=== PATIENT | female | born 1995 | race Caucasian/White ===

== ENCOUNTER 2017-11-23 04:13 | Inpatient (IN) | payer BC ==
[~2017-11-23 04:13] MED LIST: Lactated Ringers 1,000 ML IV SCH; Ondansetron 4 MG/2 ML SDV IV PRN; Oxytocin/Normal Saline 30 UNIT/500 ML BAG IV SCH
[2017-11-23] MEDS ORDERED: Penicillin G Potassium 5 MILLUNITS in Sodium Chloride 0.9% 100 ML IV ONE (05:09)
[2017-11-23] MEDS: Lactated Ringers 1,000 ML IV SCH ×2 (05:54→06:49)
[2017-11-23] MEDS ORDERED: Ondansetron 4 MG/2 ML SDV IV PRN (05:58)
[2017-11-23] MEDS ORDERED: fentaNYL 100 MCG/2 ML SDV ONE (06:20)
[2017-11-23] MEDS ORDERED: EPINEPHrine 1 MG/ML SDV ONE (06:20)
[2017-11-23] MEDS ORDERED: Bupivacaine 0.75%/D5W 2 ML Amp ONE (06:20)
--- NOTE | 2017-11-23 07:06 | PCM.SN ---
- Free Text/Narrative Note: Intrathecal. Sitting position, sterile prep and drape. 1 % lidocaine w bicarb for skinwheal to L3 L4 interspace, introducer, 24 ga pencan x 1. Pos CSF, neg heme, neg parasthesia. 1:1000 epi wash pf, 20 mcg pf sufenta, 30 mcg pf fentanyl , 0.4 ml pf ns and 6 mg of 0.75% pf bupivacaine injected after CSf aspiration. Pt to L lateral position. Procedure time 0607to 0649
[2017-11-23] MEDS ORDERED: Penicillin G Potassium 5,000,000 Unit Vial ONE (09:44)
[2017-11-23] MEDS ORDERED: Penicillin G Potassium 2.5 MILLUNITS in Sodium Chloride 0.9% 100 ML IV SCH (09:45)
[2017-11-23] MEDS ORDERED: Lidocaine 1% 30 ML SDV ONE (11:23)
[2017-11-23] MEDS ORDERED: Acetaminophen 325 MG Tab PO PRN (11:30)
[2017-11-23] MEDS ORDERED: Simethicone 80 MG Tab.Chew PO PRN (11:30)
[2017-11-23] MEDS ORDERED: Lidocaine 1% 30 ML SDV INJECT ONE (11:38)
[2017-11-23] MEDS ORDERED: Carboprost Tromethamine 250 MCG/1 ML Amp IM PRN (14:45)
[2017-11-23] MEDS ORDERED: Benzocaine/Menthol 20%-0.5% Spray 56 GM Canister TOP PRN (14:45)
[2017-11-23] MEDS ORDERED: Zolpidem 5 MG Tab PO PRN (14:45)
[2017-11-23] MEDS ORDERED: Sodium Chloride 0.9% 10 ML Syringe FLUSH PRN (14:45)
[2017-11-23] MEDS: Ibuprofen 800 MG Tab PO PRN (17:21)
[2017-11-23] MEDS: Acetaminophen 325 MG Tab PO PRN (22:33)
[2017-11-23] MEDS: Docusate Sodium 100 MG Cap PO PRN (22:37)
--- NOTE | 2017-11-24 06:34 | DEL ---
DATE: 11/23/2017 Louis has proceeded on during the 2nd stage of labor. She does have good pushing effort. She does have the vertex for a number of minutes and does have a very tight introitus, and because of the high likelihood of sustaining a severe perineal laceration, when she was not able to push the baby out spontaneously and towards the end of her labor we did a small to average sized midline episiotomy. She did proceed on very nicely to now spontaneously deliver a viable baby boy, who weighed 8 pounds 5 ounces and had scores of 9 and 9. The placenta was spontaneous and intact. Close inspection of the vaginal vault reveals no major severe lacerations; however, she does have a small right vaginal sulcus laceration, which was repaired initially with 3-0 Vicryl. Now, the remainder of the midline episiotomy is repaired in the usual fashion. Estimated blood loss from the procedure was approximately 300 mL. The patient and baby have remained very stable in the area. Please refer to the electronic health record for further obstetrical details. Sponge and instrument count was also reported and verified as correct. [facility] /[id number]
[2017-11-24] MEDS: Ibuprofen 800 MG Tab PO PRN ×2 (06:42→18:18)
[2017-11-24] MEDS: Prenatal Multivitamin with Calcium/Folic Acid/Iron Tab PO SCH (09:07)
[2017-11-24] MEDS: Docusate Sodium 100 MG Cap PO PRN ×2 (09:08→20:54)
--- NOTE | 2017-11-24 10:37 | PN ---
DATE: 11/24/2017 SUBJECTIVE: Louis is doing well on rounds today. She did deliver vaginally yesterday. Please see our delivery note. OBJECTIVE: Her vital signs are stable today including afebrile. Her lochia flow is within normal limits, and her fundus is firm. She is . Her extremities are negative. ASSESSMENT: Stable course because she is a primigravida and also was group B streptococcus positive, but did receive 2 doses of antibiotics. We will permit discharge tomorrow on Saturday morning. PLAN: See above. Progressive ambulation, adequate hydration, and healthy nutrition were reviewed with her. She will go home tomorrow. [facility] /[id number]
[2017-11-24] MEDS: Acetaminophen 325 MG Tab PO PRN (20:52)
[2017-11-25] MEDS: Ibuprofen 800 MG Tab PO PRN (07:50)
[2017-11-25] MEDS: Prenatal Multivitamin with Calcium/Folic Acid/Iron Tab PO SCH ×2 (07:50→08:53)
[2017-11-25] MEDS: Docusate Sodium 100 MG Cap PO PRN (07:53)
[2017-11-25] MEDS ORDERED: EPINEPHrine 1 MG/ML SDV IV ONE (12:29)
[2017-11-25] MEDS ORDERED: fentaNYL 100 MCG/2 ML SDV ITHECAL ONE (12:29)
[2017-11-25] MEDS ORDERED: Bupivacaine 0.75%/D5W 2 ML Amp INJECT ONE (12:29)
--- NOTE | 2017-11-25 13:16 | DISCH ---
HISTORY OF PRESENT ILLNESS: This patient is a 22-year-old, 1, now para 1 patient, who is followed by Dr. Nelson. The patient was scheduled for possible induction this coming Saturday if she had not delivered. However, the patient did enter the hospital in active labor on 11/23/2017. She was at 39 weeks 1-day gestation with an DAVID of 11/29/2017. She also was known to be GBS positive. Please see my dictated H and P, and please see the dictated delivery note. The patient is immune to rubella. Otherwise, her course has been quite uncomplicated. The patient was given IV penicillin G and did receive approximately 2 doses intrapartum before she delivered. She did proceed on to have a spontaneous vaginal delivery and did have a viable male who weighed 8 pounds 5 ounces and had scores of 9 and 9. The delivery occurred on 11/23/2017. Because of a very tight vaginal introitus and in an effort to avoid severe perineal laceration in this case, we did elect to do a [id number] midline episiotomy, and this was discussed with she and her beforehand, and we did have their permission. She did have the repair of her midline episiotomy and small right vaginal sulcus laceration. She has continued to do well in the period. We do note that she does complain of some fissures and soreness on her breast areas, so therefore, we are obtaining the specialized nipple cream that will be given to her consisting of betamethasone, Eucerin, and miconazole. The patient will also use a breast pump. PHYSICAL EXAMINATION: The patient's vital signs have remained stable. Her lochia flow is within normal limits, and her fundus is firm. Her extremities are negative. LABORATORY DATA: Discharge hemoglobin is 10.5. DISCHARGE INSTRUCTIONS: Other discharge instructions consisted of instructing her to call us if any excess fever, excess pain, or excess bleeding. She will contact us at once if any questions or problems or unusual symptoms. She also will do progressive ambulation at home. She will avoid intercourse for approximately 6 weeks. She also will do sitz baths at home p.r.n. DISCHARGE MEDICATIONS: 1. Ibuprofen or Tylenol p.r.n. 2. Benzocaine spray p.r.n. She also will have breast pump and special compounded nipple ointment from our clinic pharmacy. DIET: Regular. CONDITION: Good on discharge. OPERATIONS AND PROCEDURES: 1. Spontaneous vaginal delivery of a viable male who weighs 8 pounds 5 ounces and has scores of 9 and 9. 2. Repair of midline episiotomy and small right vaginal sulcus laceration. FINAL DIAGNOSES: 1. 1, now para 1 at 39 weeks 1-day gestation, delivered. 2. Group B streptococcus positive. [facility] /[id number]
--- NOTE | 2017-11-26 07:51 | HP ---
LOCATION: [facility]. HISTORY OF PRESENT ILLNESS: This patient is a 22-year-old 1 patient, who is followed by Dr. Nelson. She does enter the hospital early this morning on 11/23/2017 in labor and does give a history of having had clear amniotic fluid coming out by spontaneous rupture of membranes at about 3:00 a.m. today on 11/23/2017. The patient is also known to be GBS positive. She also is immune to rubella. She denies any other significant complications that she is aware of. PAST MEDICAL HISTORY: Denies any knowledge of heart, lung, liver, or kidney disease. ALLERGIES: None known. PREVIOUS SURGICAL HISTORY: None. MEDICATIONS AT PRESENT: 1. vitamins. 2. Occasionally, she did take iron during the . FAMILY HISTORY: Noncontributory. SOCIAL HISTORY: The patient is here with her today, and the patient is a nonsmoker and does not use alcohol or any street drugs. Her mother is Tessie Siddiqui from the [facility], and I have personally delivered 2 of Louis's brothers previously. PHYSICAL EXAMINATION: Vital Signs: Blood pressure 114/68, pulse 72, and respirations 17. HEENT: The sclerae are nonicteric. Lungs: Clear to A. Heart: Regular rhythm without murmur. Abdomen and Pelvis: Gravid with heart tones category 1, and the baseline is 144. Vertex is the presenting part. There is negative CVA tenderness bilaterally. The patient was thought by the nurses to be close to 4 to 5 cm dilated when she came in, and when I have seen the patient a bit later, she was completely dilated and starting to push. The vertex was at +1 station and 100% effaced for the cervix when I saw her. Clinical pelvimetry appears to be adequate. Vaginal introitus perhaps slightly tight. Extremities: Negative. Neurologic: Grossly intact. IMPRESSION: The patient has an estimated date of delivery of 11/29 and is currently at 39 weeks 1 day gestation with spontaneous rupture of membranes. The patient is group B Streptococcus positive, and she is being given penicillin G prophylaxis. Heart tones are category 1. We do anticipate spontaneous vaginal delivery. We have thoroughly discussed with the patient and her what we do anticipate, and all of their questions have been answered. [facility] /[id number]
== END 2017-11-25 12:30 | disposition home or self-care (01) | DRG 560 ==
LOC: DL.OBCHECK 04:13 → DL.OB 05:05 → OBSVTOIN 11:38
PROVIDERS: ADMIT Obstetrics & Gynecology; ATTEND Obstetrics & Gynecology
PROC: 10E0XZZ Delivery of Products of Conception, External Approach (ICD-10-PCS; principal; 2017-11-23)
PROC: 0W8NXZZ Division of Female Perineum, External Approach (ICD-10-PCS; 2017-11-23)
PROC: 0HQ9XZZ Repair Perineum Skin, External Approach (ICD-10-PCS; 2017-11-23)
PROC: 00HU33Z Insertion of Infusion Device into Spinal Canal, Percutaneous Approach (ICD-10-PCS; 2017-11-23)
DX: O42.02 Full-term premature rupture of membranes, onset of labor within 24 hours of rupture (principal); O70.0 First degree perineal laceration during delivery; O99.824 Streptococcus B carrier state complicating childbirth; Z3A.39 39 weeks gestation of pregnancy; Z37.0 Single live birth
CPT/HCPCS: 36415; 51701; 51703; 59300; 59409; 85027; A9270-GY; J0171; J2540; J2590; J3010; J7050; J7120

== ENCOUNTER 2020-03-21 23:38 | Inpatient (IN) | payer OTHER ==
[2020-03-21] MEDS: Lactated Ringers 1,000 ML IV SCH (23:50)
[2020-03-22] MEDS ORDERED: Methylergonovine 0.2 MG/1 ML Amp IM PRN (00:05)
[2020-03-22] MEDS ORDERED: Lactated Ringers 500 ML IV SCH (00:05)
[2020-03-22] MEDS ORDERED: ePHEDrine 50 MG/ML SDV IVPUSH PRN (00:05)
[2020-03-22] MEDS ORDERED: Naloxone 2 MG/2 ML Syringe IVPUSH PRN (00:05)
[2020-03-22] MEDS ORDERED: Lidocaine 1% 30 ML SDV INJECT PRN (00:05)
[2020-03-22] MEDS ORDERED: Oxytocin/Normal Saline 30 UNIT/500 ML BAG IV SCH (00:05)
[2020-03-22] MEDS ORDERED: Ondansetron 4 MG/2 ML SDV IVPUSH PRN (00:05)
[2020-03-22] MEDS ORDERED: Misoprostol 400 MCG (4 X 100 MCG TAB) RECTAL PRN (00:05)
[2020-03-22] MEDS ORDERED: Tranexamic Acid 1,000 MG in Sodium Chloride 0.9% 100 ML IV PRN (00:05)
[2020-03-22] MEDS ORDERED: Carboprost Tromethamine 250 MCG/1 ML Amp IM PRN (00:05)
[2020-03-22] MEDS ORDERED: Sodium Chloride 0.9% 10 ML Syringe FLUSH PRN (00:05)
[2020-03-22] MEDS ORDERED: Lactated Ringers 1,000 ML IV ONE (00:05)
[2020-03-22] MEDS: Lactated Ringers 1,000 ML IV SCH ×2 (00:13→02:11)
[2020-03-22] MEDS ORDERED: Ondansetron 4 MG/2 ML SDV ONE (00:15)
[2020-03-22] MEDS ORDERED: EPINEPHrine 1 MG/1 ML Amp ONE (00:25)
[2020-03-22] MEDS ORDERED: fentaNYL 100 MCG/2 ML SDV ONE (00:25)
[2020-03-22] MEDS ORDERED: Sodium Bicarbonate 4.2% 2.5 MEQ/5 ML SDV ONE (00:26)
--- NOTE | 2020-03-22 00:50 | PCM.SN.2 ---
- Free Text/Narrative Note: Intrathecal. Sitting position, sterile prep and drape. 1% lidocaine w bicarb for skinwheal to L2 L3 interspace, introducer, 24 ga pencan x 1. Pos CSF neg heme, neg parasthesia. 0.1 ml pf 1:1000 epi, 20 mcg pf sufenta, 30 mcg pf fentanyl, 0.4 ml pf NS and 6 mg of 0.75% PF marcaine injected after CSF aspiration. Pt to L lateral position. Procedure time 0025 to 0055
[2020-03-22] MEDS ORDERED: Simethicone 80 MG Tab.Chew PO PRN (05:20)
[2020-03-22] MEDS ORDERED: Zolpidem 5 MG Tab PO PRN (05:20)
[2020-03-22] MEDS ORDERED: Benzocaine/Menthol 20%-0.5% Spray 56 GM Canister TOP PRN (05:20)
--- NOTE | 2020-03-22 05:36 | PCM.LDHP ---
L&D History of Present Illness - General Date of Service: 03/22/20 ( H&P) Admit Problem/Dx: Patient Status Order with Admit Dx/Problem 03/22/20 00:05 Patient Status [ADT] Routine Admission Diagnosis/Problem Admission Diagnosis/Problem Labor established Source of Information: Patient, Family, Provider, RN, RN Notes Reviewed, Significant Other, Other ( record from Alt/EPIC notes--see for details) History Limitations: Reports: No Limitations - History of Present Illness Introduction:: Delightful 25yo WF @ 39w4d scheduled for induction later this morning who presented in active labor after having membranes stripped in the clinic yesterday at her [facility] with me. no LOF or bleeding. CXNs getting stronger and closer together since then. no pre-E sx. see notes for details. GBS negative hx COVID during --ASA until 36 weeks Rubella immune Location, : Reports: Uterus Severity: Moderate Associated Symptoms: Reports: vaginal discharge - Related Data Allergies/Adverse Reactions: Allergies Allergy/AdvReac Type Severity Reaction Status Date / Time No Known Allergies Allergy Verified 11/23/17 04:17 Home Medications: Home Meds Ferrous Sulfate 325 mg PO DAILY 11/23/17 [History] Vit Calc,Iron,Folic [ Vitamins] 1 each PO DAILY 11/23/17 [History] Past Medical History - Past Health History Medical/Surgical History: Denies Medical/Surgical History HEENT History: Reports: None Cardiovascular History: Reports: None Respiratory History: Reports: None Gastrointestinal History: Reports: None Genitourinary History: Reports: None INSTALLMENT AGENT History: Reports: : 2 Para: 1 LMP (Approximate): Other OB/BYN History: prior vaginal delivery--Dr. Jewell, needed episiotomy. elevated one hour sugar screen, 3hour normal Musculoskeletal History: Reports: None Neurological History: Reports: None Psychiatric History: Reports: Anxiety, Depression Endocrine/Metabolic History: Reports: None, Other (See Below) Other Endocrine/Metabolic History: elevated one hour sugar screen, 3 hour normal Hematologic History: Reports: Anemia Oncologic (Cancer) History: Reports: None Dermatologic History: Reports: None - Infectious Disease History Infectious Disease History: Reports: Other (See Below) Other Infectious Disease History: Hx of COVID late Dec - Past Surgical History Head Surgeries/Procedures: Reports: None Respiratory Surgical History: Reports: None Female Surgical History: Reports: None Endocrine Surgical History: Reports: None Musculoskeletal Surgical History: Reports: None Social & Family History - Family History Family Medical History: No Pertinent Family History - Tobacco Use Tobacco Use Status *Q: Never Tobacco User Second Hand Smoke Exposure: No - Caffeine Use Caffeine Use: Reports: Coffee Caffeine Use Comment: 1-2 cups per day - Recreational Drug Use Recreational Drug Use: No - Living Situation & Occupation Living situation: Reports: , with Family Occupation: Employed Social History Comment: Lives with Erick and their son Elena. Expecting another boy. he is magneto electrician. she has [employer] business. mom--Sabra Siddiqui, brother Paramjit Siddiqui, JOI Manzo. H&P Review of Systems - Review of Systems: Review Of Systems: Comprehensive ROS is negative, except as noted in HPI. L&D Exam - Exam Exam: See Below - Vital Signs Vital Signs: Last Vital Signs Temp 98.2 F 03/22/20 02:15 Pulse 63 03/22/20 03:15 Resp 16 03/22/20 03:15 BP 106/55 L 03/22/20 03:15 Pulse Ox 98 03/22/20 03:15 Weight: 214 lb - OB Specific Contraction Duration (sec): 70-80 Contraction Frequency (min): 2-3 Contraction Intensity: Moderate Movement: Active Heart Tones: Present Heart Tones per Min: 120 Heart Rate (FHR) Variability: Moderate (6-25 bmp) Presentation: Right Occiput Anterior (JOHN) Estimated Weight: 8+lbs - Garrett Score Garrett Score Cervix Position: Posterior Garrett Score Consistency: Soft Garrett Score Effacement: >80% Garrett Score Dilation: > 5 cm Garrett Score 's Station: -1 ,0 Garrett Score Total: 10 - Exam General: Alert, Oriented HEENT: Conjunctiva Clear, EOMI, Hearing Intact, Nares Patent, Pupils Equal, Pupils Reactive Neck: Supple Lungs: Clear to Auscultation, Normal Respiratory Effort Cardiovascular: Regular Rate, Regular Rhythm GI/Abdominal Exam: Normal Bowel Sounds Rectal Exam: Deferred Genitourinary: Normal external exam, Cervical dilitation, Enlarged uterus Back Exam: Normal Inspection Extremities: Normal Inspection Skin: Warm, Dry, Intact Neurological: Normal Speech, Normal Tone, Sensation Intact Psychiatric: Alert, Normal Affect, Normal Mood - Patient Data Lab Results Last 24 hrs: Laboratory Results - last 24 hr 03/21/20 Range/Units 23:50 WBC 12.6 H (5.0-10.0) 10^3/uL RBC 4.44 (4.2-5.4) 10^6/uL Hgb 12.6 D (12.0-16.0) g/dL Hct 36.5 L (37.0-47.0) % MCV 82.2 (80-100) fL MCH 28.4 (27.0-34.0) pg MCHC 34.5 (33.0-35.0) g/dL Plt Count 255 (150-450) 10^3/uL Result Diagrams: 03/21/20 23:50 - Problem List (1) Spontaneous onset of labor SNOMED Code(s): 82719703 ICD Code: OFW0932 - Status: Acute Current Visit: Yes (2) Term SNOMED Code(s): 52378813 ICD Code: Z34.90 - ENCNTR FOR SUPRVSN OF NORMAL , UNSP, UNSP TRIMESTER Status: Acute Current Visit: Yes (3) Term delivered SNOMED Code(s): 69414572, 636866522 ICD Code: O80 - ENCOUNTER FOR FULL-TERM UNCOMPLICATED DELIVERY Status: Acute Current Visit: Yes (4) Vacuum extraction, delivered, current hospitalization SNOMED Code(s): 313730261 ICD Code: O66.5 - ATTEMPTED APPLICATION OF VACUUM EXTRACTOR AND FORCEPS Status: Acute Current Visit: Yes (5) Vaginal delivery SNOMED Code(s): 076866064 ICD Code: O80 - ENCOUNTER FOR FULL-TERM UNCOMPLICATED DELIVERY Status: Acute Current Visit: Yes (6) Mother currently breast-feeding SNOMED Code(s): 469171258 ICD Code: Z39.1 - ENCOUNTER FOR CARE AND EXAMINATION OF LACTATING MOTHER Status: Acute Current Visit: Yes (7) Rubella immune SNOMED Code(s): 528752311 ICD Code: Z78.9 - OTHER SPECIFIED HEALTH STATUS Status: Acute Current Visit: Yes (8) Blood type A+ SNOMED Code(s): 772538794 ICD Code: Z67.10 - TYPE A BLOOD, RH POSITIVE Status: Acute Current Visit: Yes (9) Group B Streptococcus not isolated SNOMED Code(s): 911607035 ICD Code: IAW0261 - Status: Acute Current Visit: Yes (10) History of 2019 novel coronavirus disease (COVID-19) SNOMED Code(s): 062303226768961533 ICD Code: Z86.19 - PERSONAL HISTORY OF OTHER INFECTIOUS AND PARASITIC DISEASES Status: Acute Current Visit: Yes Problem List Initiated/Reviewed/Updated: Yes Orders Last 24hrs: Active Orders 24 hr Category Date Time Status Patient Status [ADT] Routine ADT 03/22/20 00:05 Active Communication Order [RC] ASDIRECTED Care 03/22/20 00:05 Active Communication Order [RC] PER UNIT ROUTINE Care 03/22/20 00:05 Active Communication Order [RC] PER UNIT ROUTINE Care 03/22/20 00:05 Active Communication Order [RC] PER UNIT ROUTINE Care 03/22/20 00:05 Active Heart Tones [RC] PER UNIT ROUTINE Care 03/22/20 00:05 Active Notify Provider Vital Signs OB [RC] ASDIRECTED Care 03/22/20 00:05 Active Notify Provider [RC] PRN Care 03/22/20 00:05 Active Pump Management, Intrathecal [RC] ASDIRECTED Care 03/22/20 00:05 Active Up ad Ashley [RC] ASDIRECTED Care 03/22/20 00:05 Active Vital Signs [RC] PER UNIT ROUTINE Care 03/22/20 00:05 Active Vital Signs [RC] PFP Care 03/22/20 05:22 Active Consult to Hebrew Teacher [CONS] Routine Cons 03/22/20 05:20 Active Regular Diet [DIET] Diet 03/22/20 Breakfast Active Acetaminophen [TylenoL] Med 03/22/20 00:05 Active 650 mg PO Q4H PRN Benzocaine/Menthol [Dermoplast Pain Relief [place]] Med 03/22/20 05:20 Active See Dose Instructions TOP Q4H PRN Carboprost Tromethamine [Hemabate DS] Med 03/22/20 00:05 Active 250 mcg IM ASDIRECTED PRN Docusate Sodium [Colace] Med 03/22/20 05:20 Active 100 mg PO BID PRN Ibuprofen [Motrin] Med 03/22/20 05:20 Active 800 mg PO Q8H PRN Lactated Ringers [Ringers, Lactated] 1,000 ml Med 03/22/20 00:05 Active IV ASDIRECTED Lactated Ringers [Ringers, Lactated] 500 ml Med 03/22/20 00:05 Active IV SEECOMMENT Lidocaine 1% [Xylocaine-MPF 1%] Med 03/22/20 00:05 Active 30 ml INJECT ASDIRECTED PRN Methylergonovine [Methergine] Med 03/22/20 00:05 Active 0.2 mg IM ASDIRECTED PRN Naloxone [Narcan] Med 03/22/20 00:05 Active 0.1 mg IVPUSH SEECOMMENT PRN Ondansetron [Zofran] Med 03/22/20 00:05 Active 4 mg IVPUSH Q4H PRN Oxytocin/Normal Saline [Pitocin in NS 30 UNIT/500 ML] Med 03/22/20 00:05 Active 30 unit in 500 ml IV TITRATE Vit with Ca/FA/Iron [ Plus Iron] Med 03/22/20 09:00 Active 1 each PO DAILY Simethicone Med 03/22/20 05:20 Active 80 mg PO Q4H PRN Sodium Chloride 0.9% [Saline Flush] Med 03/22/20 00:05 Active 10 ml FLUSH ASDIRECTED PRN Tranexamic Acid [Cyklokapron] 1,000 mg Med 03/22/20 00:05 Active Sodium Chloride 0.9% [Normal Saline] 100 ml IV ONETIME Zolpidem [Ambien] Med 03/22/20 05:20 Active 5 mg PO BEDTIME PRN ePHEDrine [ePHEDrine sulfate] Med 03/22/20 00:05 Active 5 mg IVPUSH Q5M PRN miSOPROStoL [Cytotec] Med 03/22/20 00:05 Active 800 mcg RECTAL ASDIRECTED PRN Assess Lochia [WOMSER] Per Unit Routine Oth 03/22/20 05:22 Ordered Assess Uterine Involution [WOMSER] Per Unit Routine Oth 03/22/20 05:22 Ordered Blood Pressure [OM.PC] Routine Oth 03/22/20 00:05 Ordered Breast Pump [WOMSER] Per Unit Routine Oth 03/22/20 05:22 Ordered Ice Therapy [OM.PC] Per Unit Routine Oth 03/22/20 05:22 Ordered Perineal Care [OM.PC] Per Unit Routine Oth 03/22/20 05:22 Ordered Saline Lock Insert [OM.PC] Routine Oth 03/22/20 00:05 Ordered Sitz Bath [OM.PC] Per Unit Routine Oth 03/22/20 05:22 Ordered Resuscitation Status Routine Resus Stat 03/22/20 01:39 Ordered Medication Orders Acetaminophen (Tylenol) 650 mg PO Q4H PRN PRN Reason: Pain (Mild 1-3) and fever Benzocaine/Menthol (Dermoplast Pain Relief Sterling) 0 gm TOP Q4H PRN PRN Reason: Perineal comfort measures Carboprost Tromethamine (Hemabate Ds) 250 mcg IM ASDIRECTED PRN PRN Reason: HEMORRHAGE Docusate Sodium (Colace) 100 mg PO BID PRN PRN Reason: Constipation Ephedrine Sulfate (Ephedrine Sulfate) 5 mg IVPUSH Q5M PRN PRN Reason: See Label Comments Lactated Ringer's (Ringers, Lactated) 1,000 mls @ 125 mls/hr IV ASDIRECTED [facility] Last Admin: 03/22/20 02:11 Dose: 125 mls/hr Documented by: Infusion: 03/22/20 02:11 Dose: 125 mls/hr Documented by: Admin: 03/22/20 00:13 Dose: 125 mls/hr Documented by: Infusion: 03/22/20 00:13 Dose: 125 mls/hr Documented by: Admin: 03/21/20 23:50 Dose: 125 mls/hr Documented by: MATIAS Tranexamic Acid 1,000 mg/ (Sodium Chloride) 110 mls @ 660 mls/hr IV ONETIME PRN PRN Reason: Bleeding Oxytocin/Sodium Chloride (Pitocin In Ns 30 Unit/500 Ml) 30 unit in 500 mls @ 2 mls/hr IV TITRATE LATOYA; Protocol Last Titration: 03/22/20 03:27 Dose: 6 munits/min, 6 mls/hr Documented by: Titration: 03/22/20 02:53 Dose: 4 munits/min, 4 mls/hr Documented by: Admin: 03/22/20 02:23 Dose: 2 munits/min, 2 mls/hr Documented by: MATIAS Lactated Ringer's (Ringers, Lactated) 500 mls @ 999 mls/hr IV SEECOMMENT LATOYA Ibuprofen (Motrin) 800 mg PO Q8H PRN PRN Reason: Mild Pain or Fever Lidocaine HCl (Xylocaine-Mpf 1%) 30 ml INJECT ASDIRECTED PRN PRN Reason: Perineal Repair Methylergonovine Maleate (Methergine) 0.2 mg IM ASDIRECTED PRN PRN Reason: Hemorrhage Misoprostol (Cytotec) 800 mcg RECTAL ASDIRECTED PRN PRN Reason: Hemorrhage Naloxone HCl (Narcan) 0.1 mg IVPUSH SEECOMMENT PRN PRN Reason: Respiratory Depression Ondansetron HCl (Zofran) 4 mg IVPUSH Q4H PRN PRN Reason: Nausea/Vomiting Last Admin: 03/22/20 00:23 Dose: 4 mg Documented by: MATIAS Prenat Multivit/Cottle/Iron/Folic Ac ( Plus Iron) 1 each PO DAILY LATOYA Simethicone (Simethicone) 80 mg PO Q4H PRN PRN Reason: Gas Sodium Chloride (Saline Flush) 10 ml FLUSH ASDIRECTED PRN PRN Reason: Keep Vein Open Zolpidem Tartrate (Ambien) 5 mg PO BEDTIME PRN PRN Reason: Insomnia Assessment/Plan Comment:: Assessment: 25yo WF @ 39w4d with onset labor advanced cervical dilation A+ blood type rubella immune GBS negative Hx COVID infection--ECASA to 36 weeks NST reactive Plan: admit to L&D routine admit orders pitocin augmentation if indicated AROM if needed plan for expected vaginal delivery. All questions answered. [email or web address]
--- NOTE | 2020-03-22 05:57 | PCM.DEL ---
L & D Note - General Info Date of Service: 03/22/20 (time of : 0457) Mother's Due Date: 03/25/20 (39w4d) - Delivery Note Labor: Spontaneous Delivery Outcome: Livebirth Infant Delivery Method: Spontaneous Vaginal Delivery-Single Delivery Mode: Vacuum Extraction Presentation: Left Occiput Anterior (MYNOR) Nuchal Cord: None Prep: Povidone-Iodine (Betadine Anesthesia Type: Intrathecal Amniotic Fluid Description: Clear Episiotomy Type: None Laceration: None Placenta: Intact, Spontaneous Cord: 3 Vessels Estimated Blood Loss: 222 Resuscitation Needed: No Neeses: Suctioned, Bulb Syringe, Stimulated, Warmed, [place] Used Provider: Roxanna Nelson (Dilcia Hill) Score 1 min: 8 Score 5 min: 9 Second Stage Interventions: Reports: Second Nurse Assessed Progress of Descent, Second Nurse Reviewed Contraction Pattern, Second Nurse Reviewed Heart Tones, Encouragement Given, Pushing Effectively, Pushing, Pulls Own Legs Back Delivery Comments (Free Text/Narrative):: Louis pushing well, but baby stops at +2 position and mom is getting frustrated and fatigued. MYNOR, heart tones dip with cxns but recover, though more slowly at times she would like vacuum assist, and also requests consideration for episiotomy. we elected to avoid episiotomy, but did proceed with vacuum assist, trying the low profile first, which was unsuccessful and kept slipping off the baby's head, then allowed her to push again, in McRobert's position with assist to hold legs. when baby's head was nearly , the [place]wi bassett vacuum placed and baby delivered with next cxn. MYNOR, pop of left shoulder noted when came under pubic bone. baby dried and stimulated. strong cry at . placed on mom's chest for bonding and nursing. cord clamped X 2 by me, then cut by dad. cord blood obtained. placenta delivered intact perineum intact. uterus firm, pitocin running per protocol. EBL 200-250cc both mom and baby stable hmb Induction Criteria - Garrett Score Garrett Score Dilation: > 5 cm Garrett Score Effacement: >80% Garrett Score Infant's Station: -1 ,0 Garrett Score Consistency: Soft Garrett Score Cervix Position: Posterior Garrett Score Total: 10 Garrett Score Presenting Part: Reports: Cephalic - Induction Gestational Age >/= 39 wks: Yes Estimated Pelvis: Reports: Adequate Reassuring Monitoring Strip: Yes Absence of Tachy Systole: Yes - Augmentation Estimated Pelvis: Reports: Adequate Weight Estimated:: Reports: AGA Reassuring Monitoring Strip: Yes Absence of Tachy Systole: Yes Vacuum Extractor Progress Note - Alternative Labor Strategies Considered Alternative Labor Strategies Considered:: Reports: Yes Strategies Considered:: Reports: Contraction Intensity Adequate, Position Changes Used to Facilitate Rotation & Descent, Empty Bladder Indications Considered:: Reports: Yes Indications:: Reports: Shortening of 2nd Stage for Maternal Benefit, Suspicion of Immediate or Potential Compromise Time Out:: Reports: Yes Comments:: Dilcia Pruett and Sarah Francois present. - Patient Prepared Patient Prepared:: Reports: Yes Informed Consent:: Reports: Verbal Risks: Reports: Yes Anesthesia/Analgesia Adequate:: Reports: Yes - Probability of Success High Probability of Success:: Reports: Yes Weight Estimated:: Reports: AGA Patient Diabetic:: Reports: No Pelvis Adequate:: Reports: Yes Position:: JOHN Asynclitic:: Reports: No Station:: +2 - Application Time Maximum Application Time & Number of Pop-Offs Predetermined:: Reports: Yes Type of Vacuum Used:: Reports: Low profile, Cup: Bassett type, Cup: Mushroom type Vacuum Extraction: Successful - Exit Strategy Exit strategy available:: Reports: Yes and resuscitation teams readily available:: Reports: Yes Consult as indicated:: not indicated - General Info Date of Service: 03/22/20 (Time of delivery: 456) - Patient Data Vitals - Most Recent: Last Vital Signs Temp 98.2 F 03/22/20 02:15 Pulse 63 03/22/20 03:15 Resp 16 03/22/20 03:15 BP 106/55 L 03/22/20 03:15 Pulse Ox 98 03/22/20 03:15 Weight - Most Recent: 214 lb Lab Results Last 24 Hours: Laboratory Results - last 24 hr 03/21/20 Range/Units 23:50 WBC 12.6 H (5.0-10.0) 10^3/uL RBC 4.44 (4.2-5.4) 10^6/uL Hgb 12.6 D (12.0-16.0) g/dL Hct 36.5 L (37.0-47.0) % MCV 82.2 (80-100) fL MCH 28.4 (27.0-34.0) pg MCHC 34.5 (33.0-35.0) g/dL Plt Count 255 (150-450) 10^3/uL Med Orders - Current: Current Medications Acetaminophen (Tylenol) 650 mg PO Q4H PRN PRN Reason: Pain (Mild 1-3) and fever Benzocaine/Menthol (Dermoplast Pain Relief [place]) 0 gm TOP Q4H PRN PRN Reason: Perineal comfort measures Carboprost Tromethamine (Hemabate Ds) 250 mcg IM ASDIRECTED PRN PRN Reason: HEMORRHAGE Docusate Sodium (Colace) 100 mg PO BID PRN PRN Reason: Constipation Ephedrine Sulfate (Ephedrine Sulfate) 5 mg IVPUSH Q5M PRN PRN Reason: See Label Comments Lactated Ringer's (Ringers, Lactated) 1,000 mls @ 125 mls/hr IV ASDIRECTED LATOYA Last Admin: 03/22/20 02:11 Dose: 125 mls/hr Documented by: Tranexamic Acid 1,000 mg/ (Sodium Chloride) 110 mls @ 660 mls/hr IV ONETIME PRN PRN Reason: Bleeding Oxytocin/Sodium Chloride (Pitocin In Ns 30 Unit/500 Ml) 30 unit in 500 mls @ 2 mls/hr IV TITRATE LATOYA; Protocol Last Titration: 03/22/20 03:27 Dose: 6 munits/min, 6 mls/hr Documented by: Lactated Ringer's (Ringers, Lactated) 500 mls @ 999 mls/hr IV SEECOMMENT LATOYA Ibuprofen (Motrin) 800 mg PO Q8H PRN PRN Reason: Mild Pain or Fever Lidocaine HCl (Xylocaine-Mpf 1%) 30 ml INJECT ASDIRECTED PRN PRN Reason: Perineal Repair Methylergonovine Maleate (Methergine) 0.2 mg IM ASDIRECTED PRN PRN Reason: Hemorrhage Misoprostol (Cytotec) 800 mcg RECTAL ASDIRECTED PRN PRN Reason: Hemorrhage Naloxone HCl (Narcan) 0.1 mg IVPUSH SEECOMMENT PRN PRN Reason: Respiratory Depression Ondansetron HCl (Zofran) 4 mg IVPUSH Q4H PRN PRN Reason: Nausea/Vomiting Last Admin: 03/22/20 00:23 Dose: 4 mg Documented by: Prenat Multivit/[place]/Iron/Folic Ac ( Plus Iron) 1 each PO DAILY LATOYA Simethicone (Simethicone) 80 mg PO Q4H PRN PRN Reason: Gas Sodium Chloride (Saline Flush) 10 ml FLUSH ASDIRECTED PRN PRN Reason: Keep Vein Open Zolpidem Tartrate (Ambien) 5 mg PO BEDTIME PRN PRN Reason: Insomnia Discontinued Medications Epinephrine HCl (Adrenalin) Confirm Administered Dose 1 mg .ROUTE .STK-MED ONE Stop: 03/22/20 00:26 Last Admin: 03/22/20 01:47 Dose: Not Given Documented by: Fentanyl (Sublimaze) Confirm Administered Dose 100 mcg .ROUTE .STK-MED ONE Stop: 03/22/20 00:26 Last Admin: 03/22/20 01:47 Dose: Not Given Documented by: Lactated Ringer's (Ringers, Lactated) 1,000 mls @ 999 mls/hr IV BOLUS ONE Stop: 03/22/20 01:05 Ondansetron HCl (Zofran) Confirm Administered Dose 4 mg .ROUTE .STK-MED ONE Stop: 03/22/20 00:16 Last Admin: 03/22/20 01:47 Dose: Not Given Documented by: Sodium Bicarbonate (Sodium Bicarbonate 4.2%) Confirm Administered Dose 2.5 meq .ROUTE .STK-MED ONE Stop: 03/22/20 00:27 Last Admin: 03/22/20 01:47 Dose: Not Given Documented by: Sufentanil Citrate (Sufenta) Confirm Administered Dose 50 mcg .ROUTE .STK-MED ONE Stop: 03/22/20 00:26 Last Admin: 03/22/20 01:47 Dose: Not Given Documented by: - Problem List & Annotations (1) Spontaneous onset of labor SNOMED Code(s): 48788813 Code(s): DOO1881 - Status: Acute Current Visit: Yes (2) Term SNOMED Code(s): 96840849 Code(s): Z34.90 - ENCNTR FOR SUPRVSN OF NORMAL , UNSP, UNSP TRIMESTER Status: Acute Current Visit: Yes (3) Term delivered SNOMED Code(s): 77834346, 859202474 Code(s): O80 - ENCOUNTER FOR FULL-TERM UNCOMPLICATED DELIVERY Status: Acute Current Visit: Yes (4) Vacuum extraction, delivered, current hospitalization SNOMED Code(s): 429708047 Code(s): O66.5 - ATTEMPTED APPLICATION OF VACUUM EXTRACTOR AND FORCEPS Status: Acute Current Visit: Yes (5) Vaginal delivery SNOMED Code(s): 203399818 Code(s): O80 - ENCOUNTER FOR FULL-TERM UNCOMPLICATED DELIVERY Status: Acute Current Visit: Yes (6) Mother currently breast-feeding SNOMED Code(s): 456935626 Code(s): Z39.1 - ENCOUNTER FOR CARE AND EXAMINATION OF LACTATING MOTHER S tatus: Acute Current Visit: Yes (7) Rubella immune SNOMED Code(s): 406995883 Code(s): Z78.9 - OTHER SPECIFIED HEALTH STATUS Status: Acute Current Visit: Yes (8) Blood type A+ SNOMED Code(s): 472667033 Code(s): Z67.10 - TYPE A BLOOD, RH POSITIVE Status: Acute Current Visit: Yes (9) Group B Streptococcus not isolated SNOMED Code(s): 378531375 Code(s): VUY3713 - Status: Acute Current Visit: Yes (10) History of 2019 novel coronavirus disease (COVID-19) SNOMED Code(s): 417294551775094902 Code(s): Z86.19 - PERSONAL HISTORY OF OTHER INFECTIOUS AND PARASITIC DISEASES Status: Acute Current Visit: Yes - Problem List Review Problem List Initiated/Reviewed/Updated: Yes - My Orders Last 24 Hours: My Active Orders 03/22/20 00:05 Patient Status [ADT] Routine Communication Order [RC] ASDIRECTED Communication Order [RC] PER UNIT ROUTINE Communication Order [RC] PER UNIT ROUTINE Communication Order [RC] PER UNIT ROUTINE Heart Tones [RC] PER UNIT ROUTINE Notify Provider Vital Signs OB [RC] ASDIRECTED Notify Provider [RC] PRN Pump Management, Intrathecal [RC] ASDIRECTED Up ad Ashley [RC] ASDIRECTED Vital Signs [RC] PER UNIT ROUTINE Acetaminophen [TylenoL] 650 mg PO Q4H PRN Carboprost Tromethamine [Hemabate DS] 250 mcg IM ASDIRECTED PRN Lactated Ringers [Ringers, Lactated] 1,000 ml IV ASDIRECTED Lactated Ringers [Ringers, Lactated] 500 ml IV SEECOMMENT Lidocaine 1% [Xylocaine-MPF 1%] 30 ml INJECT ASDIRECTED PRN Methylergonovine [Methergine] 0.2 mg IM ASDIRECTED PRN Naloxone [Narcan] 0.1 mg IVPUSH SEECOMMENT PRN Ondansetron [Zofran] 4 mg IVPUSH Q4H PRN Oxytocin/Normal Saline [Pitocin in NS 30 UNIT/500 ML] 30 unit in 500 ml IV TITRATE Sodium Chloride 0.9% [Saline Flush] 10 ml FLUSH ASDIRECTED PRN Tranexamic Acid [Cyklokapron] 1,000 mg Sodium Chloride 0.9% [Normal Saline] 100 ml IV ONETIME ePHEDrine [ePHEDrine sulfate] 5 mg IVPUSH Q5M PRN miSOPROStoL [Cytotec] 800 mcg RECTAL ASDIRECTED PRN Blood Pressure [OM.PC] Routine Saline Lock Insert [OM.PC] Routine 03/22/20 01:39 Resuscitation Status Routine 03/22/20 05:20 Consult to Archery Equipment Repairer [CONS] Routine Benzocaine/Menthol [Dermoplast Pain Relief [place]] See Dose Instructions TOP Q4H PRN Docusate Sodium [Colace] 100 mg PO BID PRN Ibuprofen [Motrin] 800 mg PO Q8H PRN Simethicone 80 mg PO Q4H PRN Zolpidem [Ambien] 5 mg PO BEDTIME PRN 03/22/20 05:22 Vital Signs [RC] PFP Assess Lochia [WOMSER] Per Unit Routine Assess Uterine Involution [WOMSER] Per Unit Routine Breast Pump [WOMSER] Per Unit Routine Ice Therapy [OM.PC] Per Unit Routine Perineal Care [OM.PC] Per Unit Routine Sitz Bath [OM.PC] Per Unit Routine 03/22/20 Breakfast Regular Diet [DIET] 03/22/20 09:00 Vit with Ca/FA/Iron [ Plus Iron] 1 each PO DAILY - Plan Plan:: Assessment: 25yo WF @ 39w4d with onset labor advanced cervical dilation A+ blood type rubella immune GBS negative Hx COVID infection--ECASA to 36 weeks NST reactive Plan: admit to L&D routine admit orders pitocin augmentation if indicated AROM if needed plan for expected vaginal delivery. All questions answered. [facility] Delivery: 03-22-2020 @ 0159 viable male BW: 3435g/ 7lb 10oz VAVD intact perineum APGARs 8 & 9 . b
[2020-03-22] MEDS: Docusate Sodium 100 MG Cap PO PRN ×2 (08:14→22:40)
[2020-03-22] MEDS: Ibuprofen 800 MG Tab PO PRN ×2 (08:14→17:16)
[2020-03-22] MEDS: Prenatal Multivitamin with Calcium/Folic Acid/Iron Tab PO SCH (08:14)
[2020-03-22] MEDS: Acetaminophen 325 MG Tab PO PRN ×3 (11:25→21:17)
[2020-03-23] MEDS: Ibuprofen 800 MG Tab PO PRN ×2 (00:54→08:50)
[2020-03-23] MEDS: Acetaminophen 325 MG Tab PO PRN ×2 (00:55→06:03)
[2020-03-23] MEDS: Docusate Sodium 100 MG Cap PO PRN (08:49)
[2020-03-23] MEDS: Prenatal Multivitamin with Calcium/Folic Acid/Iron Tab PO SCH (08:50)
--- NOTE | 2020-03-23 13:38 | PCM.DCSUM1 ---
Discharge Summary - Hospital Course Free Text/Narrative:: Louis is a 25yo G2 now P2 who presented in labor @ 39w4d and progressed on to complete dilation with pitocin augmentation, and had SROM after pushing during her 2nd stage of labor. vacuum placed, and she delivered a viable male infant 7lb 10oz/3435g over intact perineum @ 0457 on 03-22-2020 with APGARs 8 & 9 and no complications. Both mom and baby were then followed with routine cares and orders. see admit H&P, notes, and delivery note for details. mom is GBS negative, A+, RI, Hx COVID/recovered. hmb Diagnosis: Stroke: No - Discharge Data Discharge Date: 03/23/20 ( #1) Discharge Disposition: Home, Self-Care 01 Condition: Good - Referral to Home Health Date of Face to Face Encounter: 03/23/20 (for breast pump prn) Primary Care Physician: Roxanna Nelson MD - Discharge Diagnosis/Problem(s) (1) Spontaneous onset of labor SNOMED Code(s): 52292464 ICD Code: [id number] - Status: Acute Current Visit: Yes (2) Term SNOMED Code(s): 83641680 ICD Code: Z34.90 - ENCNTR FOR SUPRVSN OF NORMAL , UNSP, UNSP TRIMESTER Status: Acute Current Visit: Yes (3) Term delivered SNOMED Code(s): 91586099, 294395531 ICD Code: O80 - ENCOUNTER FOR FULL-TERM UNCOMPLICATED DELIVERY Status: Acute Current Visit: Yes (4) Vacuum extraction, delivered, current hospitalization SNOMED Code(s): 246312734 ICD Code: O66.5 - ATTEMPTED APPLICATION OF VACUUM EXTRACTOR AND FORCEPS Sta tus: Acute Current Visit: Yes (5) Vaginal delivery SNOMED Code(s): 579943324 ICD Code: O80 - ENCOUNTER FOR FULL-TERM UNCOMPLICATED DELIVERY Status: Acute Current Visit: Yes (6) Mother currently breast-feeding SNOMED Code(s): 281716159 ICD Code: Z39.1 - ENCOUNTER FOR CARE AND EXAMINATION OF LACTATING MOTHER Status: Acute Current Visit: Yes (7) Rubella immune SNOMED Code(s): 264272276 ICD Code: Z78.9 - OTHER SPECIFIED HEALTH STATUS Status: Acute Current Visit: Yes (8) Blood type A+ SNOMED Code(s): 666309999 ICD Code: Z67.10 - TYPE A BLOOD, RH POSITIVE Status: Acute Current Visit: Yes (9) Group B Streptococcus not isolated SNOMED Code(s): 355562353 ICD Code: [id number] - Status: Acute Current Visit: Yes (10) History of 2019 novel coronavirus disease (COVID-19) SNOMED Code(s): 858289205747346164 ICD Code: Z86.19 - PERSONAL HISTORY OF OTHER INFECTIOUS AND PARASITIC DISEASES Status: Acute Current Visit: Yes - Patient Summary/Data Consults: Consultations 03/22/20 05:20 Consult to Calf Skinner [CONS] Routine Hospital Course: hospital/ course uneventful. fundus remained firm, flow decreased. voiding well eating, ambulating well and seen by [facility] consultant. APNO ordered due to nipple soreness remained afebrile with VSS requesting early discharge, and was discharged home on 03-23-2020 in good condition with routine discharge instructins. follow up for 6 week PP check and sooner prn. all questions answered. hmb - Patient Instructions Diet: Usual Diet as Tolerated Activity: As Tolerated Showering/Bathing: July Shower Notify Provider of: Fever, Increased Pain, Swelling and Redness, Drainage, Nausea and/or Vomiting - Discharge Plan *PRESCRIPTION DRUG MONITORING PROGRAM REVIEWED*: Not Applicable *COPY OF PRESCRIPTION DRUG MONITORING REPORT IN PATIENT HAIR: Not Applicable Home Medications: Home Meds Ferrous Sulfate 325 mg PO DAILY 11/23/17 [History] Vit Calc,Iron,Folic [ Vitamins] 1 each PO DAILY 11/23/17 [History] - Discharge Summary/Plan Comment DC Time >30 min.: No Discharge Summary/Plan Comment: postpartm check 6 weeks. APNO as needed. - General Info Date of Service: 03/23/20 Subjective Update: doing well. nursing, eating ambulating, voiding well. no complaints. ready to go home. Functional Status: Reports: Pain Controlled - Review of Systems General: Reports: No Symptoms HEENT: Reports: No Symptoms Pulmonary: Reports: No Symptoms Cardiovascular: Reports: No Symptoms Gastrointestinal: Reports: No Symptoms Genitourinary: Reports: No Symptoms Musculoskeletal: Reports: No Symptoms Skin: Reports: No Symptoms Neurological: Reports: No Symptoms Psychiatric: Reports: No Symptoms - Patient Data Vitals - Most Recent: Last Vital Signs Temp 98.2 F 03/23/20 09:00 Pulse 66 03/23/20 09:00 Resp 16 03/23/20 09:00 BP 109/64 03/23/20 09:00 Pulse Ox 100 03/23/20 09:00 Weight - Most Recent: 214 lb Med Orders - Current: Current Medications Acetaminophen (Tylenol) 650 mg PO Q4H PRN PRN Reason: Pain (Mild 1-3) and fever Last Admin: 03/23/20 06:03 Dose: 650 mg Documented by: Benzocaine/Menthol (Dermoplast Pain Relief [place]) 0 gm TOP Q4H PRN PRN Reason: Perineal comfort measures Last Admin: 03/22/20 08:14 Dose: 1 spray Documented by: Carboprost Tromethamine (Hemabate Ds) 250 mcg IM ASDIRECTED PRN PRN Reason: HEMORRHAGE Docusate Sodium (Colace) 100 mg PO BID PRN PRN Reason: Constipation Last Admin: 03/23/20 08:49 Dose: 100 mg Documented by: Ephedrine Sulfate (Ephedrine Sulfate) 5 mg IVPUSH Q5M PRN PRN Reason: See Label Comments Lactated Ringer's (Ringers, Lactated) 1,000 mls @ 125 mls/hr IV ASDIRECTED LATOYA Last Admin: 03/22/20 02:11 Dose: 125 mls/hr Documented by: Tranexamic Acid 1,000 mg/ (Sodium Chloride) 110 mls @ 660 mls/hr IV ONETIME PRN PRN Reason: Bleeding Oxytocin/Sodium Chloride (Pitocin In Ns 30 Unit/500 Ml) 30 unit in 500 mls @ 2 mls/hr IV TITRATE LATOYA; Protocol Last Titration: 03/22/20 08:00 Dose: Infused Documented by: Lactated Ringer's (Ringers, Lactated) 500 mls @ 999 mls/hr IV SEECOMMENT LATOYA Ibuprofen (Motrin) 800 mg PO Q8H PRN PRN Reason: Mild Pain or Fever Last Admin: 03/23/20 08:50 Dose: 800 mg Documented by: Lidocaine HCl (Xylocaine-Mpf 1%) 30 ml INJECT ASDIRECTED PRN PRN Reason: Perineal Repair Methylergonovine Maleate (Methergine) 0.2 mg IM ASDIRECTED PRN PRN Reason: Hemorrhage Misoprostol (Cytotec) 800 mcg RECTAL ASDIRECTED PRN PRN Reason: Hemorrhage Naloxone HCl (Narcan) 0.1 mg IVPUSH SEECOMMENT PRN PRN Reason: Respiratory Depression Ondansetron HCl (Zofran) 4 mg IVPUSH Q4H PRN PRN Reason: Nausea/Vomiting Last Admin: 03/22/20 00:23 Dose: 4 mg Documented by: Prenat Multivit/[place]/Iron/Folic Ac ( Plus Iron) 1 each PO DAILY LATOYA Last Admin: 03/23/20 08:50 Dose: 1 each Documented by: Simethicone (Simethicone) 80 mg PO Q4H PRN PRN Reason: Gas Sodium Chloride (Saline Flush) 10 ml FLUSH ASDIRECTED PRN PRN Reason: Keep Vein Open Zolpidem Tartrate (Ambien) 5 mg PO BEDTIME PRN PRN Reason: Insomnia Discontinued Medications Epinephrine HCl (Adrenalin) Confirm Administered Dose 1 mg .ROUTE .STK-MED ONE Stop: 03/22/20 00:26 Last Admin: 03/22/20 01:47 Dose: Not Given Documented by: Fentanyl (Sublimaze) Confirm Administered Dose 100 mcg .ROUTE .STK-MED ONE Stop: 03/22/20 00:26 Last Admin: 03/22/20 01:47 Dose: Not Given Documented by: Lactated Ringer's (Ringers, Lactated) 1,000 mls @ 999 mls/hr IV BOLUS ONE Stop: 03/22/20 01:05 Last Admin: 03/22/20 06:54 Dose: Not Given Documented by: Ondansetron HCl (Zofran) Confirm Administered Dose 4 mg .ROUTE .STK-MED ONE Stop: 03/22/20 00:16 Last Admin: 03/22/20 01:47 Dose: Not Given Documented by: Sodium Bicarbonate (Sodium Bicarbonate 4.2%) Confirm Administered Dose 2.5 meq .ROUTE .STK-MED ONE Stop: 03/22/20 00:27 Last Admin: 03/22/20 01:47 Dose: Not Given Documented by: Sufentanil Citrate (Sufenta) Confirm Administered Dose 50 mcg .ROUTE .STK-MED ONE Stop: 03/22/20 00:26 Last Admin: 03/22/20 01:47 Dose: Not Given Documented by: - Exam General: Reports: Alert, Oriented HEENT: Reports: Pupils Equal, Pupils Reactive, EOMI, Mucous Membr. Moist/[place] Neck: Reports: Supple Lungs: Reports: Normal Respiratory Effort Rectal (Female) Exam: Deferred Back Exam: Reports: Normal Inspection, Full Range of Motion Extremities: Normal Inspection, Normal Range of Motion, Non-Tender, No Pedal Edema, Normal Capillary Refill Skin: Reports: Warm, Dry, Intact Neurological: Reports: No New Focal Deficit Psy/Mental Status: Reports: Alert, Normal Affect, Normal Mood
[2020-03-23] MEDS ORDERED: Sodium Bicarbonate 4.2% 2.5 MEQ/5 ML SDV ONE (15:43)
[2020-03-23] MEDS ORDERED: fentaNYL 100 MCG/2 ML SDV ITHECAL ONE (15:43)
[2020-03-23] MEDS ORDERED: EPINEPHrine 1 MG/1 ML Amp ONE (15:43)
[2020-03-23] MEDS ORDERED: Sodium Chloride 0.9% 20 ML SDV IV ONE (15:43)
== END 2020-03-23 12:45 | disposition home or self-care (01) | DRG 807 ==
LOC: DL.OBCHECK 23:38 → DL.OB 03-22 00:02 → OBSVTOIN 03-22 04:57
PROVIDERS: ADMIT Family Medicine; ATTEND Family Medicine
PROC: 10D07Z6 Extraction of Products of Conception, Vacuum, Via Natural or Artificial Opening (ICD-10-PCS; principal; 2020-03-22)
PROC: 3E0R3BZ Introduction of Anesthetic Agent into Spinal Canal, Percutaneous Approach (ICD-10-PCS; 2020-03-22)
PROC: 00HU33Z Insertion of Infusion Device into Spinal Canal, Percutaneous Approach (ICD-10-PCS; 2020-03-22)
DX: O99.02 Anemia complicating childbirth (principal); Z37.0 Single live birth; D64.9 Anemia, unspecified; O66.5 Attempted application of vacuum extractor and forceps; Z67.10 Type A blood, Rh positive; Z09 Encounter for follow-up examination after completed treatment for conditions other than malignant neoplasm; Z86.19 Personal history of other infectious and parasitic diseases; Z3A.39 39 weeks gestation of pregnancy
CPT/HCPCS: 01967; 36415; 51701; 59409; 85027; A9270-GY; J0171; J2405; J2590; J3010; J7120